=== PATIENT | female | born 1940 | race Two or more races ===

== ENCOUNTER 2018-03-29 08:12 | Day surgery (SDC) | payer MEDICARE, OTHER ==
[~2018-03-29 08:12] MED LIST: DIAZEPAM 5 MG TAB PO; DIPHENHYDRAMINE 50 MG CAP PO; FAMOTIDINE 20 MG TAB PO; SOD CHLORIDE 0.45% 1,000 ML IV
[2018-03-29 09:10] LABS: ADD MAN DIFF? NO
[2018-03-29 09:13] LABS: BASOPHILS % 0.4 % (0.0-2.0); EOSINOPHILS # 0.1 10^3/ul (0.0-0.5); EOSINOPHILS % 2.8 % (0.0-7.0); HEMATOCRIT 41.7 % (37.0-47.0); HEMOGLOBIN 13.6 g/dl (12.0-16.0); LYMPHOCYTES # 1.5 10^3/ul (0.8-2.9); LYMPHOCYTES % 30.7 % (15.0-51.0); MEAN CORPUSCULAR HEMOGLOBIN 31.1 pg (29.0-33.0); MEAN CORPUSCULAR HGB CONC 32.6 g/dl (32.0-37.0); MEAN CORPUSCULAR VOLUME 95.4 fl (82.0-101.0); MEAN PLATELET VOLUME 11.8 fl (7.4-10.4); MONOCYTE # 0.4 10^3/ul (0.3-0.9); MONOCYTES % 7.5 % (0.0-11.0); NEUTROPHIL # 2.9 10^3/ul (1.6-7.5); NEUTROPHILS % 58.4 % (39.0-77.0); PLATELET COUNT 163 10^3/UL (140-415); RED BLOOD COUNT 4.37 10^6/ul (4.20-5.40); RED CELL DISTRIBUTION WIDTH 12.6 % (11.5-14.5)
[2018-03-29 09:13] LABS: WHITE BLOOD COUNT 4.9 10^3/ul (4.8-10.8)
[2018-03-29] MEDS ORDERED: HEPARIN 1000 UNITS/ML 10 ML INJ (09:32)
[2018-03-29] MEDS ORDERED: IODIXANOL LOCM 100 ML BTL (09:32)
[2018-03-29] MEDS ORDERED: LIDOCAINE 1% (MDV) 20 ML INJ (09:32)
[2018-03-29] MEDS ORDERED: MIDAZOLAM 1 MG/ML 2 ML INJ (09:33)
[2018-03-29] MEDS ORDERED: FENTAnyl 50 MCG/ML VIAL (09:33)
[2018-03-29] MEDS ORDERED: VERAPAMIL 5 MG INJ (09:33)
[2018-03-29] MEDS ORDERED: NITROGLYCERIN (IC) 100 MCG/ML INJ (09:33)
[2018-03-29 09:35] LABS: ANION GAP 11 (8-16); CARBON DIOXIDE 31 mmol/L (21-31); CHLORIDE 104 mmol/L (97-110); CHOL/HDL RATIO 2.8 RATIO; CHOLESTEROL 145 mg/dl (100-200); GLUCOSE 93 mg/dl (70-220); HDL CHOLESTEROL 51 mg/dl (33-92); LDL CHOLESTEROL,CALCULATED 75 mg/dl; TRIGLYCERIDES 95 mg/dl (0-149)
[2018-03-29 09:36] LABS: BLOOD UREA NITROGEN 20 mg/dl (7-20); CALCIUM 8.7 mg/dl (8.4-10.2); CREATININE 0.83 mg/dl (0.44-1.00); POTASSIUM 3.7 mmol/L (3.5-5.1); SODIUM 142 mmol/L (135-144)
[2018-03-29 09:39] LABS: INR 1.08; PROTIME 14.1 Sec (11.9-14.9); PT RATIO 1.1
[2018-03-29 09:40] LABS: PARTIAL THROMBOPLASTIN TIME 30.3 Sec (25.0-35.0)
[2018-03-29] MEDS ORDERED: SOD CHLORIDE 0.9% 1,000 ML IV (10:06)
[2018-03-29] MEDS ORDERED: morphine 2 MG INJ IV (10:30)
[2018-03-29] MEDS ORDERED: ACETAMINOPHEN 325 MG TAB PO (10:30)
[2018-03-29] MEDS ORDERED: AL HYDROX/MG HYDROX/SIMETH 30 ML CUP PO (10:30)
[2018-03-29] MEDS ORDERED: ONDANSETRON 4 MG INJ IV (10:30)
== END 2018-03-29 14:45 | disposition home or self-care (01) ==
LOC: SDS 08:12
DX: I25.10 Atherosclerotic heart disease of native coronary artery without angina pectoris (principal); I10 Essential (primary) hypertension; R94.39 Abnormal result of other cardiovascular function study
CPT/HCPCS: 71045; 80048; 80061; 85025; 85610; 85730; 93005; 93458